=== PATIENT | female | born 1940 | race Caucasian/White ===

== ENCOUNTER 2020-10-19 13:01 | Emergency (ER) | payer MEDICARE ==
[~2020-10-19] VITALS: Ht 157.5 cm; Wt 72.7 kg
[2020-10-19 13:14] VITALS: TEMP 98.1
[2020-10-19] MEDS ORDERED: KAPSPARGO SPRIN50 MG PO (13:26)
[2020-10-19] MEDS ORDERED: HCTZ 25MG TAB25 MG PO (13:26)
[2020-10-19] MEDS ORDERED: MAGNESIUM250 M1 PO (13:26)
[2020-10-19] MEDS ORDERED: GLUCOPHAGE500 MG/TAB PO (13:26)
[2020-10-19] MEDS ORDERED: PRINIVIL40 MG PO (13:27)
[2020-10-19] MEDS ORDERED: NEURONTIN100 MG/CAP PO (13:27)
[2020-10-19] MEDS ORDERED: NORVASC2.5 MG PO (13:27)
[2020-10-19] MEDS ORDERED: LIPITOR 40MG TA40 MG PO (13:27)
[2020-10-19] MEDS ORDERED: ASPIRIN 81M81 MG/TA2 PO (13:28)
[2020-10-19 13:43] LABS: COLLECTION METHOD CLEAN CATCH
[2020-10-19 13:51] LABS: BASO # 0.1 (0.0-0.2); BASO % 0.8 % (0.0-2.0); EOS % 0.6 % (0-4.0); GRAN # 5.3 (1.4-6.5); GRAN % 73.3 % (42.2-75.2); HEMATOCRIT 35.7 % (37.0-47.0); HEMOGLOBIN 11.3 g/dl (12.5-16.0); LYMPH # 1.1 (1.2-3.4); LYMPH % 14.9 % (20.0-51.0); MEAN CELL VOLUME 89 fl (80.0-100.0); MEAN CORPUSCULAR HEMOGLOBIN 28 pg (27.0-31.0); MEAN CORPUSCULAR HGB CONC 32 g/dl (33.0-37.0); MEAN PLATELET VOLUME 9.9 fl (7.4-10.4); MONO # 0.7 (0.1-0.6); PLATELET COUNT 331 K/mm3 (130-400); RED BLOOD COUNT 4.02 M/mm3 (4.10-5.30); REDCELL DISTRIBUTION WIDTH-CV 15.1 % (11.5-14.5)
[2020-10-19 13:57] LABS: PH 5 (5-8); URINE APPEARANCE Cloudy; URINE BACTERIA Rare /hpf; URINE BILIRUBIN Negative (NEGATIVE); URINE BLOOD Negative (NEGATIVE); URINE COLOR Yellow; URINE GLUCOSE Negative (NEGATIVE); URINE KETONE Negative (NEGATIVE); URINE LEUKOCYTE ESTERASE 2+ (NEGATIVE); URINE NITRATE Negative (NEGATIVE); URINE PROTEIN(semi-quant) Negative (NEGATIVE); URINE UROBILINOGEN Negative (NEGATIVE)
[2020-10-19] MEDS ORDERED: CEPHALEXIN500 M1 PO (14:04)
[2020-10-19 14:13] LABS: ALBUMIN 3.6 gm/dL (3.5-5.0); BILIRUBIN,TOTAL 0.7 mg/dL (0.0-1.0); CALCIUM 9.2 mg/dL (8.4-10.2); CREATININE, serum 2.87 (0.52-1.25); POTASSIUM 3.9 mmol/L (3.4-5.0); TOTAL PROTEIN 6.4 gm/dL (6.4-8.2)
[2020-10-19 14:57] VITALS: BP 121/80; PULSE 81
[2020-10-19 15:19] LABS: TROPONIN-I 0.017 ng/mL (0.000-0.035)
[2020-10-19 15:38] LABS: TSH w REFLEX 2.17 uIU/mL (0.465-4.680)
== END 2020-10-19 14:50 | disposition left against medical advice (07) ==
LOC: COL.ER 13:01
PROVIDERS: Emergency Medicine
DX: N39.0 Urinary tract infection, site not specified (principal); R79.89 Other specified abnormal findings of blood chemistry; L03.116 Cellulitis of left lower limb; E11.9 Type 2 diabetes mellitus without complications; I10 Essential (primary) hypertension; E78.5 Hyperlipidemia, unspecified; Z79.899 Other long term (current) drug therapy; Z79.84 Long term (current) use of oral hypoglycemic drugs